=== PATIENT | male | born 1960 | race African-American/Black ===

== ENCOUNTER 2022-03-29 17:58 | Emergency (ER) | payer BC, OTHER ==
[2022-03-29] MEDS ORDERED: Lidocaine 1% 10 ML MDV INJECT ONE (20:32)
[2022-03-29 21:09] VITALS: BP 194/97; PULSE 84
[2022-03-29] MEDS ORDERED: Cephalexin 500 MG Cap PO ONE (21:09)
== END 2022-03-29 21:23 | disposition home or self-care (01) ==
LOC: JD.ED 17:58
DX: S81.811A Laceration without foreign body, right lower leg, initial encounter (principal); I10 Essential (primary) hypertension; Z79.899 Other long term (current) drug therapy; W22.8XXA Striking against or struck by other objects, initial encounter; Y92.69 Other specified industrial and construction area as the place of occurrence of the external cause
CPT/HCPCS: 12001; 99282; A9270

== ENCOUNTER 2024-07-19 14:25 | Emergency (ER) | payer SELFPAY ==
[2024-07-19] MEDS: Metoprolol Succinate 50 MG Tab.ER PO ONE (15:02)
[2024-07-19] MEDS: Hydrochlorothiazide 25 MG Tab PO ONE (15:02)
[2024-07-19] MEDS: Losartan 100 MG Tab PO ONE (15:02)
[2024-07-19 15:03] VITALS: PULSE 72
[2024-07-19 15:43] LABS: BASOPHILS PERCENT AUTO 0.4 % (0.0-1.0); EOSINOPHILS ABSOLUTE AUTO 0.1 K/mm3 (0.0-0.4); EOSINOPHILS PERCENT AUTO 1.1 % (0.0-6.0); HEMATOCRIT 42.6 % (42.0-52.0); HEMOGLOBIN 14.1 gm/dl (14.0-18.0); IMMATURE GRAN ABSOLUTE AUTO 0.01 K/mm3 (0.00-0.05); IMMATURE GRAN PERCENT AUTO 0.2 % (0.0-0.4); LYMPHOCYTES ABSOLUTE AUTO 1.6 K/mm3 (1.0-4.8); LYMPHOCYTES PERCENT AUTO 30.2 % (24.0-44.0); MEAN CORPUSCULAR HEMOGLOBIN 28.2 pg (28.0-32.0); MEAN CORPUSCULAR HGB CONC 33.1 g/dl (32.0-36.0); MEAN CORPUSCULAR VOLUME 85.2 fl (83.0-99.0); MEAN PLATELET VOLUME 11.2 fl (9.4-12.4); MONOCYTES ABSOLUTE AUTO 0.4 K/mm3 (0.0-0.8); MONOCYTES PERCENT AUTO 7.4 % (0.0-8.0); NEUTROPHILS ABSOLUTE AUTO 3.2 K/mm3 (1.8-7.7); NEUTROPHILS PERCENT AUTO 60.7 % (41.0-71.0); PLATELET COUNT,PLT 230 K/mm3 (150-400); WHITE BLOOD CELL COUNT,WBC 5.29 K/mm3 (3.9-11.3)
[2024-07-19 16:21] LABS: A/G RATIO 0.8 (1-2); ALBUMIN 3.4 g/dl (3.4-5.0); ANION GAP 11.3 (5-15); BILIRUBIN TOTAL 0.3 mg/dL (0.2-1.0); BUN/CREATININE RATIO 17.5 (14-18); CREATININE 1.2 mg/dL (0.7-1.3); EST CRCL DRUG DOSING (CG) 52.07 mL/min; POTASSIUM,K 4.3 mEq/L (3.5-5.1); PROTEIN TOTAL,TP 7.8 g/dl (6.4-8.2); TSH 1.299 uIU/mL (0.358-3.74)
[2024-07-19 16:50] VITALS: BP 152/81
== END 2024-07-19 16:40 | disposition home or self-care (01) ==
LOC: JD.ED 14:25
DX: I10 Essential (primary) hypertension (principal); E11.65 Type 2 diabetes mellitus with hyperglycemia
CPT/HCPCS: 36415; 80053; 84443; 84484; 85025; 93005; 99283; A9270